=== PATIENT | female | born 1935 | race Caucasian/White ===

== ENCOUNTER 2017-02-22 21:12 | Emergency (ER) | payer SELFPAY ==
[~2017-02-22] VITALS: Ht 165.1 cm; Wt 63.5 kg
[~2017-02-22 21:12] MED LIST: BENAZEPRIL HCL10 MG ORAL
[2017-02-22] MEDS ORDERED: ASPIR 8181 MG ORAL (21:34)
[2017-02-22] MEDS ORDERED: CALCIUM500 M3 PO (21:34)
[2017-02-22] MEDS ORDERED: ATENOLOL25 MG ORAL (21:34)
[2017-02-22] MEDS ORDERED: ENALAPRIL MALE2.5 MG ORAL (21:34)
[2017-02-22 21:45] VITALS: BP 189/98
--- NOTE | 2017-02-22 21:50 | Emergency Room Report ---
History of Present Illness General Chief Complaint: Flu Like Symptoms Source: Patient Present Illness HPI Patient presents with complaints of cough Ongoing for the past one and a half weeks patient reports that she has a flight [place] to [place] her has recently Denies any chest pain denies any back or flank pain Denies any abdominal pain Denies any posterior neck pain however she has a mildly sore throat Allergies: Coded Allergies: No Known Allergies (Unverified , 08/23/13) Patient History Past Medical History: see triage record Pertinent Family History: none Last Menstrual Period: n/a Reviewed Nursing Documentation: PMH: Agreed, PSxH: Agreed Nursing Documentation-PM Past Medical History: No History, Except For Hx Hypertension: Yes 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; Review of Systems All Other Systems: negative except mentioned in HPI Physical Exam Vital Signs Date Time Temp Pulse Resp B/P (MAP) Pulse Ox O2 Delivery O2 Flow Rate FiO2 02/22/17 21:26 98.6 80 16 179/118 97 Room Air Sp02 EP Interpretation: reviewed, normal General Appearance: well appearing, no apparent distress Head: normocephalic, atraumatic Eyes: bilateral eye PERRL, bilateral eye EOMI ENT: hearing grossly normal, normal pharynx, TMs + canals normal, uvula midline Neck: full range of motion, supple, no meningismus, no bony tend Respiratory: lungs clear, normal breath sounds, no rhonchi, no respiratory distress, no retraction, no accessory muscle use Cardiovascular #1: normal peripheral pulses, regular rate, rhythm, no edema, no gallop, no JVD, no murmur Gastrointestinal: normal bowel sounds, non tender, soft, no mass, no organomegaly, non-distended, no guarding, no hernia, no pulsatile mass, no rebound Genitourinary: no CVA tenderness Musculoskeletal: normal inspection Neurologic: oriented x3, responsive, dinkey press operator III-XII nml as tested, motor strength/ tone normal, sensory intact Psychiatric: mood/affect normal Skin: normal color, no rash, warm/dry, palpation normal Lymphatic: normal inspection, no adenopathy Medical Decision Making Diagnostic Impression: Primary Impression: Community acquired pneumonia ER Course Given the patient's history and presentation imaging studies were obtained No obvious focal infiltrate however there is some haziness in the left lower lobe Patient's clinical exam is in line with community-acquired pneumonia She was provided with antibiotics here continues to saturate well on room air Does not meet criteria for inpatient care and will have outpatient trial Chest X-Ray Diagnostic Results Chest X-Ray Diagnostic Results : Chest X-Ray Ordered: Yes # of Views/Limited/Complete: 1 View Indication: Chest Pain EP Interpretation: Yes Interpretation: no consolidation, no effusion, no pneumothorax, other - Mild increased pulmonary markings, left lower lobe haziness Impression: No acute disease Electronically Signed by: Wojciech Souza DO Last Vital Signs Date Time Temp Pulse Resp B/P (MAP) Pulse Ox O2 Delivery O2 Flow Rate FiO2 02/22/17 21:26 98.6 80 16 179/118 97 Room Air Status: improved Disposition: HOME, SELF-CARE Condition: Improved Scripts Levofloxacin* (LEVAQUIN*) 750 Mg Tablet 750 MG ORAL DAILY for 7 Days, TAB Prov: WOJCIECH SOUZA D.O. 02/22/17 Additional Instructions: Patient is provided with the discharge instructions notified to follow up with primary doctor in the next 2-3 days otherwise return to the er with any worsening symptoms. Please note that this report is being documented using [employer] technology. This can lead to erroneous entry secondary to incorrect interpretation by the dictating instrument. WOJCIECH SOUZA D.O. Feb 22, 2017 21:50
[2017-02-22] MEDS ORDERED: LEVAQUIN750 MG ORAL (23:10)
[2017-02-22] MEDS ORDERED: Levofloxacin 500mg tab ORAL ONE ×2 (23:15)
[2017-02-22 23:35] VITALS: BP 167/112
--- NOTE | 2017-02-23 12:42 | Diagnostic Imaging Report ---
Indication: Dyspnea Comparison: 08/23/13 A single view chest radiograph was obtained. Findings: No definite infiltrate or pulmonary vascular congestion identified. The heart is enlarged. The aorta is mildly enlarged consistent with atherosclerotic vascular disease. The bones are osteopenic. Impression: No acute disease
== END 2017-02-22 23:35 | disposition home or self-care (01) ==
LOC: EMR 22:43
DX: J18.8 Other pneumonia, unspecified organism (principal); I10 Essential (primary) hypertension; H91.91 Unspecified hearing loss, right ear
CPT/HCPCS: 71010; 99283

== ENCOUNTER 2018-11-14 21:00 | Inpatient (IN) | payer MEDICARE, MEDICAID ==
[~2018-11-14] VITALS: Ht 165.1 cm; Wt 69.9 kg
[~2018-11-14 21:00] MED LIST changes: +ASPIR 8181 MG ORAL; +ATENOLOL25 MG ORAL; +CALCIUM500 M3 PO; +ENALAPRIL MALE2.5 MG ORAL; +LEVAQUIN750 MG ORAL
[2018-11-14] MEDS ORDERED: AMLODIPINE BESY10 MG ORAL (21:08)
[2018-11-14] MEDS ORDERED: PLAVIX75 MG ORAL (21:09)
[2018-11-14] MEDS ORDERED: BYSTOLIC10 MG ORAL (21:09)
[2018-11-14 21:15] VITALS: BP 166/80
[2018-11-14] MEDS ORDERED: Pantoprazole Inj IVP ONE (21:15)
--- NOTE | 2018-11-14 21:15 | NUR ---
ED Nurse Note: [facility] abdominal pain, N/V/D. Per patient she noticed dark blood in her stool and emesis. AAO x4, VSS at this time, skin is dry, warm to touch. Placed in the gown, connected to the monitor, will continue to monitor.
[2018-11-14 21:59] LABS: HEMATOCRIT 40.9 % (37.0-47.0); HEMOGLOBIN 13.6 G/DL (12.0-16.0); MEAN CORPUSCULAR VOLUME 94 FL (80-99); PLATELET COUNT 225 K/UL (150-450); RED BLOOD COUNT 4.35 M/UL (4.20-5.40); RED CELL DISTRIBUTION WIDTH 10.9 % (11.6-14.8); WHITE BLOOD COUNT 9.3 K/UL (4.8-10.8)
[2018-11-14 22:52] LABS: POTASSIUM 4.6 MMOL/L (3.5-5.1)
[2018-11-14 22:54] LABS: CARBON DIOXIDE 26 MMOL/L (21-32); CHLORIDE 101 MMOL/L (98-107)
[2018-11-14 22:55] LABS: ANION GAP 10 mmol/L (5-15); BLOOD UREA NITROGEN 18 mg/dL (7-18)
[2018-11-14 22:56] LABS: CREATININE 1.2 MG/DL (0.55-1.30)
[2018-11-14 22:57] LABS: BILIRUBIN,TOTAL 0.6 MG/DL (0.2-1.0)
[2018-11-14 22:58] LABS: ALANINE AMINOTRANSFERASE 16 U/L (12-78); ASPARTATE AMINO TRANSFERASE 20 U/L (15-37)
[2018-11-14 22:59] LABS: ALBUMIN 3.6 G/DL (3.4-5.0)
[2018-11-14 23:00] LABS: ALBUMIN/GLOBULIN RATIO 1.1 (1.0-2.7)
[2018-11-14] MEDS ORDERED: Isovue-300 100ml vial INJ PRN (23:00)
[2018-11-14 23:01] LABS: ALKALINE PHOSPHATASE 75 U/L (46-116)
[2018-11-14 23:03] LABS: SODIUM 137 MMOL/L (136-145)
--- NOTE | 2018-11-14 23:07 | Emergency Room Report ---
History of Present Illness General Chief Complaint: Vomiting Present Illness HPI Patient is an 83-year-old female brought in by EMS after increased vomiting and discoloration of her stools. Patient had reportedly been having coffee-ground emesis as well as dark stool. She had been recently undergoing physical therapy. She denies any fever. 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; Review of Systems All Other Systems: negative except mentioned in HPI Physical Exam Vital Signs Date Time Temp Pulse Resp B/P (MAP) Pulse Ox O2 Delivery O2 Flow Rate FiO2 11/14/18 20:59 97.9 78 16 166/80 (108) 98 Room Air Sp02 EP Interpretation: reviewed, normal General Appearance: normal inspection, well appearing, no apparent distress, alert, GCS 15, Chronically Ill Head: atraumatic ENT: normal ENT inspection, hearing grossly normal, normal voice Neck: normal inspection, full range of motion, supple, no bony tend Respiratory: normal inspection, lungs clear, normal breath sounds, no respiratory distress, no retraction, no wheezing Cardiovascular #1: regular rate, rhythm, no edema Gastrointestinal: normal inspection, normal bowel sounds, non tender, soft, no guarding, no hernia Genitourinary: no CVA tenderness Musculoskeletal: normal inspection, back normal, normal range of motion Neurologic: normal inspection, alert, oriented x3, responsive, traffic control technician III-XII nml as tested, motor strength/tone normal, speech normal Psychiatric: normal inspection, judgement/insight normal, mood/affect normal Medical Decision Making Diagnostic Impression: Primary Impression: Coffee ground emesis Additional Impression: GI bleed ER Course Patient presented for hematemesis. Differential diagnosis include was not limited to abscess, anemia, foreign body, myocardial infarction among others. Because of complexity of patient's case laboratory testing and imaging studies were ordered. EKG interpreted by me showed normal sinus rhythm with a rate of [address] or T wave changes. Patient was given IV Zofran as well as IV Protonix.Have some improvement in her symptoms after medications. Patient will be admitted to the hospital. Patient's advanced age as well as bleeding on anticoagulant medications.Patient will be admitted to Dr. Nam Che for inpatient management due to panel physician. Labs Test 11/14/18 21:20 White Blood Count 9.3 K/UL (4.8-10.8) Red Blood Count 4.35 M/UL (4.20-5.40) Hemoglobin 13.6 G/DL (12.0-16.0) Hematocrit 40.9 % (37.0-47.0) Mean Corpuscular Volume 94 FL (80-99) Mean Corpuscular Hemoglobin 31.2 PG (27.0-31.0) Mean Corpuscular Hemoglobin Concent 33.2 G/DL (32.0-36.0) Red Cell Distribution Width 10.9 % (11.6-14.8) Platelet Count 225 K/UL (150-450) Mean Platelet Volume 6.5 FL (6.5-10.1) Neutrophils (%) (Auto) % (45.0-75.0) Lymphocytes (%) (Auto) % (20.0-45.0) Monocytes (%) (Auto) % (1.0-10.0) Eosinophils (%) (Auto) % (0.0-3.0) Basophils (%) (Auto) % (0.0-2.0) Differential Total Cells Counted 100 Neutrophils % (Manual) 86 % (45-75) Lymphocytes % (Manual) 9 % (20-45) Monocytes % (Manual) 4 % (1-10) Eosinophils % (Manual) 0 % (0-3) Basophils % (Manual) 1 % (0-2) Band Neutrophils 0 % (0-8) Platelet Estimate Adequate Platelet Morphology Normal Red Blood Cell Morphology Normal Prothrombin Time 10.5 SEC (9.30-11.50) Prothromb Time International Ratio 1.0 (0.9-1.1) Activated Partial Thromboplast Time 23 SEC (23-33) Sodium Level 137 MMOL/L (136-145) Potassium Level 4.6 MMOL/L (3.5-5.1) Chloride Level 101 MMOL/L (98-107) Carbon Dioxide Level 26 MMOL/L (21-32) Anion Gap 10 mmol/L (5-15) Blood Urea Nitrogen 18 mg/dL (7-18) Creatinine 1.2 MG/DL (0.55-1.30) Estimat Glomerular Filtration Rate mL/min (>60) Glucose Level 196 MG/DL (74-106) Calcium Level 9.0 MG/DL (8.5-10.1) Total Bilirubin 0.6 MG/DL (0.2-1.0) Aspartate Amino Transf (AST/SGOT) 20 U/L (15-37) Alanine Aminotransferase (ALT/SGPT) 16 U/L (12-78) Alkaline Phosphatase 75 U/L (46-116) Troponin I 0.018 ng/mL (0.000-0.056) Total Protein 6.9 G/DL (6.4-8.2) Albumin 3.6 G/DL (3.4-5.0) Globulin 3.3 g/dL Albumin/Globulin Ratio 1.1 (1.0-2.7) Lipase 125 U/L (73-393) Thyroid Stimulating Hormone (TSH) 0.917 uiU/mL (0.358-3.740) Last Vital Signs Date Time Temp Pulse Resp B/P (MAP) Pulse Ox O2 Delivery O2 Flow Rate FiO2 11/14/18 21:15 97.9 16 166/80 98 Room Air 11/14/18 21:15 78 Status: improved Disposition: HOME, SELF-CARE Condition: Stable Referrals: NOT CHOSEN IPA/,REFERRING (PCP) Fabio Gray MD Nov 14, 2018 23:07
[2018-11-14 23:15] VITALS: BP 166/80
[2018-11-15] MEDS: D5 1/2NS 1,000 ML IV SCH ×2 (00:11→13:44)
[2018-11-15 01:14] VITALS: BP 136/72
--- NOTE | 2018-11-15 02:00 | NUR ---
NURSE NOTES: Received report from catracho Soto via phone. Awaiting pt arrival to floor.
[2018-11-15 04:00] VITALS: BP 138/74
--- NOTE | 2018-11-15 04:42 | NUR ---
ED Nurse Note: Patient was admited to TELE due to GI bleeding. AAO x4, VSS at this time, skin is dry, warm to touch. Patient was transfered to the unit via gurney, by ACLS protocol, with all belongings.
--- NOTE | 2018-11-15 07:49 | NUR ---
HAND-OFF: Report given to MOISE Lauren. Pt stable..
--- NOTE | 2018-11-15 07:50 | NUR ---
NURSE NOTES: Received report from MOISE Mcelroy. patient is resting in bed in stable condition. AO X 4 with no signs and symptoms of acute distress at this time. Breathing unlabored in room air. IV line intact and running at RX dose. Safety precaution in place; side rails up x2. Call Light and bed side table within reach, bed in lowest position, brakes and alarm on at all times. Will continue plan of care.
[2018-11-15 08:00] VITALS: BP 130/70
[2018-11-15] MEDS: Atenolol 25mg tab ORAL SCH (08:43)
[2018-11-15] MEDS: Aspirin EC 81mg tab ORAL SCH (08:43)
--- NOTE | 2018-11-15 08:51 | Diagnostic Imaging Report ---
Clinical Indication: Abdominal pain for 2 days Technique: No oral contrast utilized, per emergency room physician request IV administration nonionic contrast. Venous phase spiral acquisition obtained through the abdomen and pelvis. Multiplanar reconstructions were generated. Total dose length product 813.35 mGycm. CTDIvol(s) 17.93 mGy. Dose reduction achieved using automated exposure control Comparison: 08/23/2013 Findings: The appendix is normal. There is no evidence of diverticulosis or diverticulitis. No small bowel distention. No free or loculated intraperitoneal gas or fluid is evident. The distal esophagus, stomach, duodenum are unremarkable. The liver demonstrates multiple capsular calcifications. No focal parenchymal abnormality. The gallbladder, bile ducts, pancreas, spleen, adrenals are unremarkable. No retroperitoneal or mesenteric mass or adenopathy demonstrated. As previously, the uterus demonstrates multiple small fibroids, some calcified. No pelvic mass or adenopathy otherwise. The included lung bases demonstrate scarring and atelectasis on the left. The bones demonstrate thoracolumbar scoliotic deformity and secondary degenerative changes. There is mild fullness to the left renal collecting system which is similar in extent to the previous exam. Multiple parapelvic cysts are seen bilaterally, also demonstrated previously.. Subcentimeter low-attenuation renal lesions are demonstrated bilaterally, too small to characterize. A parenchymal defect is seen in the lower pole of the right kidney, where there was previously a large cyst which has apparently since involuted. Impression: No acute abnormality Bilateral renal parapelvic cysts. Subcentimeter low-attenuation renal lesions are too small to characterize, most likely benign simple cysts. Interim involution of a large right lower pole cyst Uterine fibroids, some calcified, also previously demonstrated Other findings as noted, including thoracal lumbar scoliotic deformity, secondary degenerative changes, pulmonary basilar scarring or atelectasis, hepatic capsular calcifications This agrees with the preliminary interpretation provided overnight by [employer] teleradiology service. The CT scanner at [facility] is accredited by the [employer] [employer] and the scans are performed using protocols designed to limit radiation exposure to as low as reasonably achievable to attain images of sufficient resolution adequate for diagnostic evaluation.
[2018-11-15 09:40] LABS: BASOPHILS % (AUTO) 0.7 % (0.0-2.0); EOSINOPHILS % (AUTO) 0.7 % (0.0-3.0); HEMATOCRIT 41.5 % (37.0-47.0); HEMOGLOBIN 13.3 G/DL (12.0-16.0); LYMPHOCYTES % (AUTO) 25.1 % (20.0-45.0); MEAN CORPUSCULAR VOLUME 97 FL (80-99); MONOCYTES % (AUTO) 7.6 % (1.0-10.0); NEUTROPHILS % (AUTO) 65.9 % (45.0-75.0); PLATELET COUNT 236 K/UL (150-450); RED BLOOD COUNT 4.27 M/UL (4.20-5.40); RED CELL DISTRIBUTION WIDTH 11.4 % (11.6-14.8); WHITE BLOOD COUNT 7.2 K/UL (4.8-10.8)
[2018-11-15 09:43] LABS: ANION GAP 5 mmol/L (5-15); BLOOD UREA NITROGEN 15 mg/dL (7-18); CALCIUM 8.9 MG/DL (8.5-10.1); CARBON DIOXIDE 31 MMOL/L (21-32); CHLORIDE 106 MMOL/L (98-107); CREATININE 1.1 MG/DL (0.55-1.30); POTASSIUM 4.2 MMOL/L (3.5-5.1); SODIUM 142 MMOL/L (136-145)
--- NOTE | 2018-11-15 10:00 | History and Physical Report ---
DATE OF ADMISSION: 11/14/2018 REASON FOR ADMISSION: 1. Bright red blood through rectum. 2. GI bleed. HISTORY OF PRESENT ILLNESS: The patient is an 83-year-old female brought in by EMS after complaining of passing bright red blood through rectum starting yesterday around 3 p.m. The patient had been doing well with physical therapy as an outpatient, presented home and started noticing dark tarry stools, which turned bright red. She also had episodes of emesis, which she felt was dark tinged in nature. Denies any current chest pain, nausea, vomiting, or diarrhea. No pain with defecation. PAST MEDICAL HISTORY: 1. Hypertension. 2. Coronary artery disease. PAST SURGICAL HISTORY: Noncontributory. ALLERGIES: No known drug allergies. FAMILY HISTORY: Positive for hypertension. SOCIAL HISTORY: No tobacco, alcohol, or illicit drug use. REVIEW OF SYSTEMS: NEUROLOGIC: The patient denies headache, change in vision, syncope, or presyncopal episodes. CARDIOVASCULAR: No current chest pain, palpitations, or angina. PULMONARY: No difficulty breathing, productive cough, or sputum. GASTROINTESTINAL/GENITOURINARY: The patient was having bright red blood through rectum and episodes of emesis, blood tinged. MUSCULOSKELETAL: The patient is feeling weak, tired, and fatigued. PHYSICAL EXAMINATION: VITAL SIGNS: Blood pressure 130/70, respiratory rate 20, pulse 57, and temperature 98. 97% oxygen saturation on room air. GENERAL: The patient is awake and alert, not in distress. HEENT: Extraocular muscles intact. No lymphadenopathy noted. CARDIOVASCULAR: S1, S2. No rubs or gallops. PULMONARY: Clear to auscultation bilaterally. No rales, rhonchi or wheezes. ABDOMEN: Nondistended and nontender. EXTREMITIES: No edema. LABORATORY DATA: Labs dated 11/14/2018, sodium 137, potassium 4.6, creatinine 1.2. Hemoglobin 13.6, white cell count 9.3, and platelet count 225. ASSESSMENT AND PLAN: 1. Gastrointestinal bleed with bright red blood through the rectum, could be secondary to hemorrhoids. Hemoglobin is currently stable. We will recheck level and consult Gastroenterology for possible EGD and colonoscopy. 2. Hypertension. We will continue antihypertensive medications. Blood pressure is currently stable. Continue IV fluids. 3. Volume depletion. Continue IV fluids. 4. Coronary artery disease. The patient has been on Plavix, at this time being temporarily held until cleared by GI. 5. DVT prophylaxis with SCDs. Macjimenez Landaverde MD DR: POONAM JOB#: [id number] CC:
--- NOTE | 2018-11-15 10:01 | GI Initial Consult Note ---
History of Present Illness General Date patient seen: Nov 15, 2018 Time patient seen: 09:54 Reason for Hospitalization: Vomiting Referring physician: VALDEMAR YUN Reason for Consultation: COFFEE GROUNDS Present Illness HPI Patient is an 83-year-old female brought in by EMS after increased vomiting and discoloration of her stools. Patient had reportedly been having coffee-ground emesis as well as dark stool. She had been recently undergoing physical therapy. She denies any fever. She is currently on anticoagulation with Plavix. GI consulted for coffee grounds. Pt seen, awake A&OX4 NAD with no active s/sx of N/V/D . Patient reported episode of coffee ground emesis and diarrhea yesterday. Presents today, states she feels okay. Took Plavix this morning. States she had colonoscopy approximately 5 years ago with unremarkable findings. Had history of colonic polyps 15 years ago. Labs reviewed; no anemia , no leukocytosis, no transaminitis. Home Meds Active Scripts Levofloxacin* (LEVAQUIN*) 750 Mg Tablet, 750 MG ORAL DAILY for 7 Days, TAB Prov:Wojciech Carranza DO 02/22/17 Reported Medications Clopidogrel Bisulfate* (PLAVIX*) 75 Mg Tablet, 75 MG ORAL DAILY, TAB 11/14/18 Nebivolol Hcl (BYSTOLIC*) 10 Mg Tablet, 5 MG ORAL DAILY, TAB 11/14/18 Amlodipine Besylate* (AMLODIPINE BESYLATE*) 10 Mg Tablet, 10 MG ORAL BID, TAB 11/14/18 Enalapril Maleate* (ENALAPRIL MALEATE*) 2.5 Mg Tablet, 2.5 MG ORAL EVERY 12 HOURS, TAB 02/22/17 Aspirin* (ASPIR 81*) 81 Mg Tablet.dr, 75 MG ORAL DAILY, TAB 02/22/17 Atenolol* (TENORMIN*) 25 Mg Tablet, 25 MG ORAL DAILY, TAB 02/22/17 Calcium Carbonate (CALCIUM) 500 Mg Tab.chew, 500 MG PO, TAB 02/22/17 Benazepril Hcl* (BENAZEPRIL HCL*) 10 Mg Tablet, 10 MG ORAL DAILY, TAB 08/23/13 Med list reviewed/reconciled: Yes Allergies: Coded Allergies: No Known Allergies (Unverified , 08/23/13) Patient History History Provided By: Patient, Medical Record PMH Narrative Past Medical History: see triage record Reviewed Nursing Documentation: PMH: Agreed; PSxH: Agreed Nursing Documentation-PMH Hx Hypertension: Yes 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; Social History: Denies: smoking, alcohol use, drug use, other Review of Systems All Other Systems: negative except mentioned in HPI Physical Exam Vital Signs Date Time Temp Pulse Resp B/P (MAP) Pulse Ox O2 Delivery O2 Flow Rate FiO2 11/14/18 20:59 97.9 78 16 166/80 (108) 98 Room Air Sp02 EP Interpretation: reviewed, normal Labs Laboratory Tests Test 11/14/18 21:20 11/15/18 09:25 White Blood Count 9.3 K/UL (4.8-10.8) 7.2 K/UL (4.8-10.8) Red Blood Count 4.35 M/UL (4.20-5.40) 4.27 M/UL (4.20-5.40) Hemoglobin 13.6 G/DL (12.0-16.0) 13.3 G/DL (12.0-16.0) Hematocrit 40.9 % (37.0-47.0) 41.5 % (37.0-47.0) Mean Corpuscular Volume 94 FL (80-99) 97 FL (80-99) Mean Corpuscular Hemoglobin 31.2 PG (27.0-31.0) H 31.1 PG (27.0-31.0) H Mean Corpuscular Hemoglobin Concent 33.2 G/DL (32.0-36.0) 31.9 G/DL (32.0-36.0) L Red Cell Distribution Width 10.9 % (11.6-14.8) L 11.4 % (11.6-14.8) L Platelet Count 225 K/UL (150-450) 236 K/UL (150-450) Mean Platelet Volume 6.5 FL (6.5-10.1) 6.3 FL (6.5-10.1) L Neutrophils (%) (Auto) % (45.0-75.0) 65.9 % (45.0-75.0) Lymphocytes (%) (Auto) % (20.0-45.0) 25.1 % (20.0-45.0) Monocytes (%) (Auto) % (1.0-10.0) 7.6 % (1.0-10.0) Eosinophils (%) (Auto) % (0.0-3.0) 0.7 % (0.0-3.0) Basophils (%) (Auto) % (0.0-2.0) 0.7 % (0.0-2.0) Differential Total Cells Counted 100 Neutrophils % (Manual) 86 % (45-75) H Lymphocytes % (Manual) 9 % (20-45) L Monocytes % (Manual) 4 % (1-10) Eosinophils % (Manual) 0 % (0-3) Basophils % (Manual) 1 % (0-2) Band Neutrophils 0 % (0-8) Platelet Estimate Adequate Platelet Morphology Normal Red Blood Cell Morphology Normal Prothrombin Time 10.5 SEC (9.30-11.50) Prothromb Time International Ratio 1.0 (0.9-1.1) Activated Partial Thromboplast Time 23 SEC (23-33) Sodium Level 137 MMOL/L (136-145) 142 MMOL/L (136-145) Potassium Level 4.6 MMOL/L (3.5-5.1) 4.2 MMOL/L (3.5-5.1) Chloride Level 101 MMOL/L (98-107) 106 MMOL/L (98-107) Carbon Dioxide Level 26 MMOL/L (21-32) 31 MMOL/L (21-32) Anion Gap 10 mmol/L (5-15) 5 mmol/L (5-15) Blood Urea Nitrogen 18 mg/dL (7-18) 15 mg/dL (7-18) Creatinine 1.2 MG/DL (0.55-1.30) 1.1 MG/DL (0.55-1.30) Estimat Glomerular Filtration Rate mL/min (>60) mL/min (>60) Glucose Level 196 MG/DL (74-106) H 104 MG/DL (74-106) Calcium Level 9.0 MG/DL (8.5-10.1) 8.9 MG/DL (8.5-10.1) Total Bilirubin 0.6 MG/DL (0.2-1.0) Aspartate Amino Transf (AST/SGOT) 20 U/L (15-37) Alanine Aminotransferase (ALT/SGPT) 16 U/L (12-78) Alkaline Phosphatase 75 U/L (46-116) Troponin I 0.018 ng/mL (0.000-0.056) Total Protein 6.9 G/DL (6.4-8.2) Albumin 3.6 G/DL (3.4-5.0) Globulin 3.3 g/dL Albumin/Globulin Ratio 1.1 (1.0-2.7) Lipase 125 U/L (73-393) Thyroid Stimulating Hormone (TSH) 0.917 uiU/mL (0.358-3.740) General Appearance: well appearing, no apparent distress, alert Head: normocephalic EENT: PERRL/EOMI, normal ENT inspection Neck: supple Respiratory: normal breath sounds, no respiratory distress Cardiovascular: normal rate Gastrointestinal: normal inspection, non tender, soft, normal bowel sounds, non -distended Rectal: deferred Genitourinary: no CVA tenderness Musculoskeletal: normal inspection, back normal Neurologic: normal inspection, alert, oriented x3, responsive Psychiatric: normal inspection, judgement/insight normal, memory normal Skin: normal inspection, normal color, no rash, warm/dry, palpation normal, well hydrated Lymphatic: normal inspection, no adenopathy Current Medications Current Medications Medications (Trade) Dose Ordered Sig/Jose Route PRN Reason Start Time Stop Time Status Last Admin Dose Admin Acetaminophen (Tylenol) 650 mg Q4H PRN ORAL Mild Pain (Pain Scale 1-3) 11/14/18 23:15 12/14/18 23:14 Amlodipine Besylate (Norvasc) 10 mg DAILY ORAL 11/15/18 09:00 12/15/18 08:59 11/15/18 08:43 Aspirin (Ecotrin) 81 mg DAILY ORAL 11/15/18 09:00 12/15/18 08:59 11/15/18 08:43 Atenolol (Tenormin) 25 mg DAILY ORAL 11/15/18 09:00 12/15/18 08:59 11/15/18 08:43 Dextrose (Dextrose 50%) 25 ml Q30M PRN IV Hypoglycemia 11/14/18 23:15 12/14/18 23:14 Dextrose (Dextrose 50%) 50 ml Q30M PRN IV Hypoglycemia 11/14/18 23:15 12/14/18 23:14 Dextrose/Sodium Chloride 1,000 ml @ 75 mls/hr [id number] IV 11/15/18 00:11 12/15/18 00:10 11/15/18 00:11 Iopamidol (Isovue-300 100ml) 100 ml NOW PRN INJ Radiology Procedure 11/14/18 23:00 Ondansetron HCl (Zofran) 4 mg Q6H PRN IVP Nausea & Vomiting 11/14/18 23:15 12/14/18 23:14 Pantoprazole (Protonix) 40 mg DAILY ORAL 11/15/18 09:00 12/15/18 08:59 11/15/18 08:42 GI: Plan Problems: (1) Gastric ulcer (2) Coffee ground emesis (3) Diarrhea (4) GI bleed (5) Abdominal pain Plan Plavix must be discontinued for minimum of 48 hours prior any GI procedures, last taken this morning. plan for EGD advance to soft cardiac diet monitor H&H, prn transfusions ppi daily IV/PO hydration follow labs Discussed with Dr. Sheridan. Thank you for this patient referral, we will follow. The patient was seen and examined at bedside and all new and available data was reviewed in the patients chart. I agree with the above findings, impression and plan. (Patient seen earlier today. Signature stamp does not reflect patient encounter time.). - MD Vania Agrawal,[facility] [employer] ENGINE REPAIRER Nov 15, 2018 10:01
--- NOTE | 2018-11-15 11:03 | Consultation ---
Consult Note Consult Note Pulmonary Consultation HISTORY OF PRESENT ILLNESS: The patient is an 83-year-old female brought in by EMS after complaining of passing bright red blood through rectum starting yesterday around 3 p.m. The patient had been doing well with physical therapy as an outpatient, presented home and started noticing dark tarry stools, which turned bright red. She also had episodes of emesis, which she felt was dark tinged in nature. Denies any current chest pain, nausea, vomiting, or diarrhea. No pain with defecation. Additionally, patient also reported chest discomfort this morning. She denies any shortness of breath. PAST MEDICAL HISTORY: 1. Hypertension. 2. Coronary artery disease. PAST SURGICAL HISTORY: Noncontributory. ALLERGIES: No known drug allergies. FAMILY HISTORY: Positive for hypertension. SOCIAL HISTORY: No tobacco, alcohol, or illicit drug use. REVIEW OF SYSTEMS: NEUROLOGIC: The patient denies headache, change in vision, syncope, or presyncopal episodes. CARDIOVASCULAR: No current chest pain, palpitations, or angina. PULMONARY: No difficulty breathing, productive cough, or sputum. GASTROINTESTINAL/GENITOURINARY: The patient was having bright red blood through rectum and episodes of emesis, blood tinged. MUSCULOSKELETAL: The patient is feeling weak, tired, and fatigued. PHYSICAL EXAMINATION: VITAL SIGNS: Blood pressure 130/70, respiratory rate 20, pulse 57, and temperature 98. 97% oxygen saturation on room air. GENERAL: The patient is awake and alert, not in distress. HEENT: Extraocular muscles intact. No lymphadenopathy noted. CARDIOVASCULAR: S1, S2. No rubs or gallops. PULMONARY: Clear to auscultation bilaterally. No rales, rhonchi or wheezes. ABDOMEN: Nondistended and nontender. EXTREMITIES: No edema. LABORATORY DATA: Labs dated 11/14/2018, sodium 137, potassium 4.6, creatinine 1.2. Hemoglobin 13.6, white cell count 9.3, and platelet count 225. ASSESSMENT AND PLAN: 1. Gastrointestinal bleed with bright red blood through the rectum, could be secondary to hemorrhoids. Hemoglobin is currently stable. agreed to recheck level and consult Gastroenterology for possible EGD and colonoscopy. 2. Hypertension. I will continue antihypertensive medications. Blood pressure is currently stable. Continue IV fluids. 3. Volume depletion. Continue IV fluids. 4. Coronary artery disease. The patient has been on Plavix, at this time being temporarily held until cleared by GI. 5. DVT prophylaxis with SCDs. 6. chest pain. Appears nonpulmonary and noncardiac in origin. Agree with GI evaluation and possible endoscopy MD Chinedu Bay Omar Syed MD Nov 15, 2018 11:03
[2018-11-15 12:00] VITALS: BP 100/54
--- NOTE | 2018-11-15 13:09 | Cardiology Report ---
APPROVED REPORT EKG Measurement Heart [id number] OR [id number] Sinus rhythm with premature atrial complexes Left axis deviation Left ventricular hypertrophy with repolarization abnormality Possible Lateral infarct, age undetermined Abnormal ECG
--- NOTE | 2018-11-15 15:07 | NUR ---
CASE MANAGEMENT:REVIEW 83 YR OLD FEMALE BIBA FROM HOME CC: COFFEE GROUND EMESIS AND BLOODY STOOL SI: GIB 97.8 78 16 166/80 98% ON RA GLUCOSE+196 IS: IV ZOFRAN IV PROTONIX TYPE AND CROSS : TELEMETRY STATUS DCP; FROM HOME
[2018-11-15 16:00] VITALS: BP 105/66
--- NOTE | 2018-11-15 19:25 | NUR ---
HAND-OFF: Report given to Joseph. PHIPPS.
--- NOTE | 2018-11-15 19:26 | NUR ---
NURSE NOTES: Received pt from catracho Smith. Pt is awake and resting in bed. Iv site intact. Bed locked in lowest position and call light within reach. Will continue with plan of care.
[2018-11-15 20:00] VITALS: BP 105/60
[2018-11-16] VITALS: BP 111/59
[2018-11-16 04:00] VITALS: BP 143/86
[2018-11-16] MEDS: D5 1/2NS 1,000 ML IV SCH ×2 (06:00→16:11)
--- NOTE | 2018-11-16 07:20 | NUR ---
NURSE NOTES: Report received from MOISE Shukla. Patient asleep comfortably. No breathing distress noted. IV running, site intact. Bed on lowest position, side rails upx2, brakes engaged. Call light within easy reach.
--- NOTE | 2018-11-16 07:27 | NUR ---
HAND-OFF: Report given to MOISE Martino. Endorsed plan of care.
[2018-11-16 08:00] VITALS: BP 143/77
--- NOTE | 2018-11-16 08:01 | Nephrology Progress Note ---
Assessment/Plan Assessment/Plan: A/P 1) GI Bleed- EGD/ +- Colonoscopy planned for then DC afterwards 2) HTN- stable 3) DVT prophylaxis- SCDs DC once cleared by GI Subjective Date patient seen: Nov 16, 2018 Time patient seen: 08:00 Allergies: Coded Allergies: No Known Allergies (Unverified , 08/23/13) All Systems: reviewed and negative except above Subjective Patient in no distress. Awaiting GI procedure Objective Last 24 Hour Vital Signs Date Time Temp Pulse Resp B/P (MAP) Pulse Ox O2 Delivery O2 Flow Rate FiO2 11/16/18 04:00 48 11/16/18 04:00 98.1 48 18 143/86 (105) 97 11/16/18 00:00 53 11/16/18 00:00 98.0 53 18 111/59 (76) 95 11/15/18 21:00 Room Air 11/15/18 20:00 54 11/15/18 20:00 97.9 54 18 105/60 (75) 95 11/15/18 16:00 56 11/15/18 16:00 97.8 58 20 105/66 (79) 95 11/15/18 12:00 97.9 62 20 100/54 (69) 95 11/15/18 12:00 55 11/15/18 09:00 Room Air 11/15/18 08:43 67 130/70 11/15/18 08:43 67 130/70 11/15/18 08:00 62 11/15/18 08:00 98.0 57 20 130/70 (90) 97 Intake and Output 11/15/18 11/16/18 19:00 07:00 Intake Total 320 ml Balance 320 ml Intake Oral 320 ml # Voids 3 3 Laboratory Tests 11/15/18 09:25: White Blood Count 7.2, Red Blood Count 4.27, Hemoglobin 13.3, Hematocrit 41.5, Mean Corpuscular Volume 97, Mean Corpuscular Hemoglobin 31.1H, Mean Corpuscular Hemoglobin Concent 31.9L, Red Cell Distribution Width 11.4L, Platelet Count 236 , Mean Platelet Volume 6.3L, Neutrophils (%) (Auto) 65.9, Lymphocytes (%) (Auto ) 25.1, Monocytes (%) (Auto) 7.6, Eosinophils (%) (Auto) 0.7, Basophils (%) ( Auto) 0.7, Sodium Level 142, Potassium Level 4.2, Chloride Level 106, Carbon Dioxide Level 31, Anion Gap 5, Blood Urea Nitrogen 15, Creatinine 1.1, Estimat Glomerular Filtration Rate , Glucose Level 104, Calcium Level 8.9 Height (Feet): 5 Height (Inches): 5.00 Weight (Pounds): 154 General Appearance: no apparent distress Neck: normal alignment Cardiovascular: regular rhythm Respiratory/Chest: lungs clear, normal breath sounds Abdomen: non tender, soft Edema: no edema noted Arm (L), no edema noted Arm (R), no edema noted Leg (L), no edema noted Leg (R), no edema noted Pedal (L), no edema noted Pedal (R), no edema noted Generalized Mac Landaverde MD Nov 16, 2018 08:01
--- NOTE | 2018-11-16 08:20 | NUR ---
NURSE NOTES: Helped Pt. to the restroom. AOx4. No pain or SOB.
[2018-11-16 08:49] LABS: BASOPHILS % (AUTO) 0.9 % (0.0-2.0); EOSINOPHILS % (AUTO) 4.2 % (0.0-3.0); HEMATOCRIT 41.1 % (37.0-47.0); HEMOGLOBIN 13.3 G/DL (12.0-16.0); LYMPHOCYTES % (AUTO) 38.9 % (20.0-45.0); MEAN CORPUSCULAR VOLUME 97 FL (80-99); MONOCYTES % (AUTO) 7.5 % (1.0-10.0); NEUTROPHILS % (AUTO) 48.5 % (45.0-75.0); PLATELET COUNT 212 K/UL (150-450); RED BLOOD COUNT 4.22 M/UL (4.20-5.40); RED CELL DISTRIBUTION WIDTH 11.8 % (11.6-14.8); WHITE BLOOD COUNT 5.7 K/UL (4.8-10.8)
[2018-11-16] MEDS: Atenolol 25mg tab ORAL SCH (09:00)
[2018-11-16] MEDS: Aspirin EC 81mg tab ORAL SCH (09:00)
[2018-11-16 09:21] LABS: ANION GAP 7 mmol/L (5-15); BLOOD UREA NITROGEN 20 mg/dL (7-18); CALCIUM 8.5 MG/DL (8.5-10.1); CARBON DIOXIDE 27 MMOL/L (21-32); CHLORIDE 108 MMOL/L (98-107); CREATININE 1.1 MG/DL (0.55-1.30); POTASSIUM 3.8 MMOL/L (3.5-5.1); SODIUM 142 MMOL/L (136-145)
--- NOTE | 2018-11-16 09:32 | Pulmonology Progress Note ---
Assessment/Plan Assessment/Plan ASSESSMENT AND PLAN: 1. Gastrointestinal bleed with bright red blood through the rectum, could be secondary to hemorrhoids. Hemoglobin is currently stable. 2. Hypertension. 3. Volume depletion. 4. Coronary artery disease. 5. DVT prophylaxis with SCDs. 6. Chest pain. Appears nonpulmonary and noncardiac in origin. Subjective Interval Events: No new respiratory eventys Constitutional: Reports: no symptoms HEENT: Repors: no symptoms Respiratory: Reports: no symptoms Cardiovascular: Reports: no symptoms Gastrointestinal/Abdominal: Reports: no symptoms Genitourinary: Reports: no symptoms Allergies: Coded Allergies: No Known Allergies (Unverified , 08/23/13) Objective Last 24 Hour Vital Signs Date Time Temp Pulse Resp B/P (MAP) Pulse Ox O2 Delivery O2 Flow Rate FiO2 11/16/18 09:18 58 143/77 11/16/18 09:00 58 143/77 11/16/18 08:00 98.5 58 18 143/77 (99) 96 11/16/18 04:00 48 11/16/18 04:00 98.1 48 18 143/86 (105) 97 11/16/18 00:00 53 11/16/18 00:00 98.0 53 18 111/59 (76) 95 11/15/18 21:00 Room Air 11/15/18 20:00 54 11/15/18 20:00 97.9 54 18 105/60 (75) 95 11/15/18 16:00 56 11/15/18 16:00 97.8 58 20 105/66 (79) 95 11/15/18 12:00 97.9 62 20 100/54 (69) 95 11/15/18 12:00 55 Intake and Output 11/15/18 11/16/18 19:00 07:00 Intake Total 320 ml Balance 320 ml Intake Oral 320 ml # Voids 3 3 General Appearance: no acute distress HEENT: normocephalic Respiratory/Chest: chest wall non-tender, lungs clear Cardiovascular: normal peripheral pulses, normal rate Laboratory Tests 11/16/18 06:25: White Blood Count 5.7, Red Blood Count 4.22, Hemoglobin 13.3, Hematocrit 41.1, Mean Corpuscular Volume 97, Mean Corpuscular Hemoglobin 31.4H, Mean Corpuscular Hemoglobin Concent 32.2, Red Cell Distribution Width 11.8, Platelet Count 212, Mean Platelet Volume 6.2L, Neutrophils (%) (Auto) 48.5, Lymphocytes (%) (Auto) 38.9, Monocytes (%) (Auto) 7.5, Eosinophils (%) (Auto) 4.2H, Basophils (%) (Auto ) 0.9, Sodium Level 142, Potassium Level 3.8, Chloride Level 108H, Carbon Dioxide Level 27, Anion Gap 7, Blood Urea Nitrogen 20H, Creatinine 1.1, Estimat Glomerular Filtration Rate , Glucose Level 86, Calcium Level 8.5 Current Medications Medications (Trade) Dose Ordered Sig/Jose Route PRN Reason Start Time Stop Time Status Last Admin Dose Admin Acetaminophen (Tylenol) 650 mg Q4H PRN ORAL Mild Pain (Pain Scale 1-3) 11/14/18 23:15 12/14/18 23:14 Amlodipine Besylate (Norvasc) 10 mg DAILY ORAL 11/15/18 09:00 12/15/18 08:59 11/16/18 09:18 Aspirin (Ecotrin) 81 mg DAILY ORAL 11/15/18 09:00 12/15/18 08:59 11/15/18 08:43 Atenolol (Tenormin) 25 mg DAILY ORAL 11/15/18 09:00 12/15/18 08:59 11/15/18 08:43 Dextrose (Dextrose 50%) 25 ml Q30M PRN IV Hypoglycemia 11/14/18 23:15 12/14/18 23:14 Dextrose (Dextrose 50%) 50 ml Q30M PRN IV Hypoglycemia 11/14/18 23:15 12/14/18 23:14 Dextrose/Sodium Chloride 1,000 ml @ 75 mls/hr [id number] IV 11/15/18 00:11 12/15/18 00:10 11/16/18 06:00 Iopamidol (Isovue-300 100ml) 100 ml NOW PRN INJ Radiology Procedure 11/14/18 23:00 Ondansetron HCl (Zofran) 4 mg Q6H PRN IVP Nausea & Vomiting 11/14/18 23:15 12/14/18 23:14 Pantoprazole (Protonix) 40 mg DAILY ORAL 11/15/18 09:00 12/15/18 08:59 11/16/18 09:18 Nam Che MD Nov 16, 2018 09:32
--- NOTE | 2018-11-16 10:32 | GI Progress Note ---
Assessment/Plan Problems: (1) Coffee ground emesis ICD Codes: K92.0 - Hematemesis SNOMED: 13574908 (2) GI bleed ICD Codes: K92.2 - Gastrointestinal hemorrhage, unspecified SNOMED: 70555278 (3) Abdominal pain (4) Diarrhea ICD Codes: R19.7 - Diarrhea, unspecified SNOMED: 82370905 (5) Gastric ulcer ICD Codes: K25.9 - Gastric ulcer, unspecified as acute or chronic, without hemorrhage or perforation SNOMED: 154666670 Status: stable Status Narrative Discussed with Dr. Sheridan. Assessment/Plan Plavix must be discontinued for minimum of 48 hours prior any GI procedures. plan for EGD/colonoscopy tomorrow CLD, NPO @ [facility] monitor H&H, prn transfusions ppi daily IV/PO hydration follow labs PT eval will follow with additional recommendations post procedure The patient was seen and examined at bedside and all new and available data was reviewed in the patients chart. I agree with the above findings, impression and plan. (Patient seen earlier today. Signature stamp does not reflect patient encounter time.). - Kevin Sheridan MD Subjective Subjective abdominal pain Objective Last 24 Hour Vital Signs Date Time Temp Pulse Resp B/P (MAP) Pulse Ox O2 Delivery O2 Flow Rate FiO2 11/16/18 09:18 58 143/77 11/16/18 09:00 58 143/77 11/16/18 08:00 98.5 58 18 143/77 (99) 96 11/16/18 04:00 48 11/16/18 04:00 98.1 48 18 143/86 (105) 97 11/16/18 00:00 53 11/16/18 00:00 98.0 53 18 111/59 (76) 95 11/15/18 21:00 Room Air 11/15/18 20:00 54 11/15/18 20:00 97.9 54 18 105/60 (75) 95 11/15/18 16:00 56 11/15/18 16:00 97.8 58 20 105/66 (79) 95 11/15/18 12:00 97.9 62 20 100/54 (69) 95 11/15/18 12:00 55 Intake and Output 11/15/18 11/16/18 19:00 07:00 Intake Total 320 ml Balance 320 ml Intake Oral 320 ml # Voids 3 3 Laboratory Tests Test 11/16/18 06:25 White Blood Count 5.7 K/UL (4.8-10.8) Red Blood Count 4.22 M/UL (4.20-5.40) Hemoglobin 13.3 G/DL (12.0-16.0) Hematocrit 41.1 % (37.0-47.0) Mean Corpuscular Volume 97 FL (80-99) Mean Corpuscular Hemoglobin 31.4 PG (27.0-31.0) H Mean Corpuscular Hemoglobin Concent 32.2 G/DL (32.0-36.0) Red Cell Distribution Width 11.8 % (11.6-14.8) Platelet Count 212 K/UL (150-450) Mean Platelet Volume 6.2 FL (6.5-10.1) L Neutrophils (%) (Auto) 48.5 % (45.0-75.0) Lymphocytes (%) (Auto) 38.9 % (20.0-45.0) Monocytes (%) (Auto) 7.5 % (1.0-10.0) Eosinophils (%) (Auto) 4.2 % (0.0-3.0) H Basophils (%) (Auto) 0.9 % (0.0-2.0) Sodium Level 142 MMOL/L (136-145) Potassium Level 3.8 MMOL/L (3.5-5.1) Chloride Level 108 MMOL/L (98-107) H Carbon Dioxide Level 27 MMOL/L (21-32) Anion Gap 7 mmol/L (5-15) Blood Urea Nitrogen 20 mg/dL (7-18) H Creatinine 1.1 MG/DL (0.55-1.30) Estimat Glomerular Filtration Rate mL/min (>60) Glucose Level 86 MG/DL (74-106) Calcium Level 8.5 MG/DL (8.5-10.1) Height (Feet): 5 Height (Inches): 5.00 Weight (Pounds): 154 General Appearance: WD/WN, no apparent distress, alert Cardiovascular: normal rate Respiratory/Chest: normal breath sounds, no respiratory distress Abdominal Exam: normal bowel sounds, non tender, soft Extremities: normal range of motion, non-tender Xuan Caro PAYMENT PROCESSOR Nov 16, 2018 10:32
--- NOTE | 2018-11-16 11:30 | NUR ---
NURSE NOTES: Pt. refused new IV. Will try in later time.
[2018-11-16 12:00] VITALS: BP 126/68
--- NOTE | 2018-11-16 13:45 | NUR ---
NURSE NOTES: R H 22g IV placed. Pt. complained of pain. Removed IV site intact.
[2018-11-16 16:00] VITALS: BP 145/79
[2018-11-16] MEDS ORDERED: Magnesium Citrate Liq Btl ORAL SCH (16:00)
[2018-11-16] MEDS ORDERED: Bisacodyl EC 5mg tab ORAL SCH (16:00)
[2018-11-16] MEDS ORDERED: Polyethylene Glycol 238gm bottle ORAL SCH (16:00)
--- NOTE | 2018-11-16 19:45 | NUR ---
HAND-OFF: Report given to MOISE Carrera. Pt. in stable condition.
--- NOTE | 2018-11-16 19:50 | NUR ---
NURSE NOTES: Received report from Saba Vela RN. Patient in bed AAO X4 with no complaints of acute pain or distress noted at this time. Kept clean, dry, and comfortable in bed. IV line intact and patent and placed on continuous cardiac monitoring per protocol. Able to ambulate with minimal to no assist to the bathroom, offered bedside commode but refused. Safety precaution in place; siderails X2 up, call ligth within reach, bed in lowest position, brakes and alarm on at all times. Needs and wants anticipated and attended. Will continue plan of care and monitor for any changes noted. Bowel prep initiated NPO at [place] EGD with possible BX and Colonoscopy tomorrow 11/17/18 per Arvin/Logan No active bleeding observed. Will continue to monitor.
[2018-11-16 20:00] VITALS: BP 147/75
[2018-11-16] MEDS ORDERED: Fleet's Enema 133ml RECTAL SCH (23:00)
--- NOTE | 2018-11-16 23:54 | NUR ---
NURSE NOTES: Bowel prep ongoing. BM X3 with noted loose consistency and clear in color.
[2018-11-17] VITALS (10 sets, daily range): BP systolic 116–151; BP diastolic 68–85
[2018-11-17] MEDS: D5 1/2NS 1,000 ML IV SCH (05:47)
[2018-11-17 06:35] LABS: EOSINOPHILS % (AUTO) 2.9 % (0.0-3.0); HEMATOCRIT 38.8 % (37.0-47.0); HEMOGLOBIN 12.7 G/DL (12.0-16.0); LYMPHOCYTES % (AUTO) 30.6 % (20.0-45.0); MEAN CORPUSCULAR VOLUME 98 FL (80-99); MONOCYTES % (AUTO) 7.5 % (1.0-10.0); PLATELET COUNT 219 K/UL (150-450); RED BLOOD COUNT 3.97 M/UL (4.20-5.40); RED CELL DISTRIBUTION WIDTH 11.3 % (11.6-14.8); WHITE BLOOD COUNT 5.8 K/UL (4.8-10.8)
[2018-11-17 06:42] LABS: ANION GAP 1 mmol/L (5-15); BLOOD UREA NITROGEN 19 mg/dL (7-18); CALCIUM 8.7 MG/DL (8.5-10.1); CARBON DIOXIDE 27 MMOL/L (21-32); CHLORIDE 111 MMOL/L (98-107); CREATININE 0.9 MG/DL (0.55-1.30); POTASSIUM 3.6 MMOL/L (3.5-5.1); SODIUM 139 MMOL/L (136-145)
--- NOTE | 2018-11-17 07:39 | NUR ---
HAND-OFF: Report given to Dimple Sanchez RN. Patient in bed with no S/S of distress. Endorsed plan of care.
--- NOTE | 2018-11-17 08:00 | NUR ---
NURSE NOTES: Patient is off the unit. Went to GI lab for EGD.
--- NOTE | 2018-11-17 08:07 | Nephrology Progress Note ---
Assessment/Plan Status: stable Assessment/Plan: A/P 1) GI Bleed- EGD/ +- Colonoscopy today - DC patient if cleared by GI with home health per patient request 2) HTN- stable 3) DVT prophylaxis- SCDs DC once cleared by GI today Subjective Date patient seen: Nov 17, 2018 Time patient seen: 08:06 Allergies: Coded Allergies: No Known Allergies (Unverified , 08/23/13) Subjective Patient gone to EGD Objective Last 24 Hour Vital Signs Date Time Temp Pulse Resp B/P (MAP) Pulse Ox O2 Delivery O2 Flow Rate FiO2 11/17/18 04:00 98.1 65 20 119/70 (86) 95 11/17/18 04:00 63 11/17/18 00:00 98.1 63 19 116/70 (85) 95 11/17/18 00:00 71 11/16/18 21:00 Room Air 11/16/18 20:00 68 11/16/18 20:00 98.7 67 18 147/75 (99) 96 11/16/18 16:00 98 11/16/18 16:00 97.7 69 18 145/79 (101) 98 11/16/18 12:00 52 11/16/18 12:00 98.6 56 18 126/68 (87) 96 11/16/18 09:18 58 143/77 11/16/18 09:00 58 143/77 11/16/18 09:00 Room Air Intake and Output 11/16/18 11/17/18 19:00 07:00 Intake Total 950 ml Balance 950 ml Intake Oral 950 ml # Voids 3 2 # Bowel Movements 3 Laboratory Tests 11/17/18 05:00: White Blood Count 5.8, Red Blood Count 3.97L, Hemoglobin 12.7, Hematocrit 38.8, Mean Corpuscular Volume 98, Mean Corpuscular Hemoglobin 32.1H, Mean Corpuscular Hemoglobin Concent 32.8, Red Cell Distribution Width 11.3L, Platelet Count 219, Mean Platelet Volume 6.3L, Neutrophils (%) (Auto) 58.0, Lymphocytes (%) (Auto) 30.6, Monocytes (%) (Auto) 7.5, Eosinophils (%) (Auto) 2.9, Basophils (%) (Auto ) 1.0, Prothrombin Time 10.7, Prothromb Time International Ratio 1.0, Activated Partial Thromboplast Time 22L, Sodium Level 139, Potassium Level 3.6, Chloride Level 111H, Carbon Dioxide Level 27, Anion Gap 1L, Blood Urea Nitrogen 19H, Creatinine 0.9, Estimat Glomerular Filtration Rate , Glucose Level 112H, Calcium Level 8.7 Height (Feet): 5 Height (Inches): 5.00 Weight (Pounds): 154 Mac Landaverde MD Nov 17, 2018 08:07
[2018-11-17] MEDS ORDERED: NS 500ML IVPB ONE (08:10)
--- NOTE | 2018-11-17 08:16 | Discharge Instructions ---
Discharge Instructions Discharge Instructions Services at Discharge: home health services Diet: 2 GM sodium (low sodium) Resume Normal Activity?: Yes Activity: resume normal activities Follow Up Orders F/U PCP 1 week Patient requested service at [facility] Reminder Report to your physician any weight gain of 5 pounds or more in one week. Mac Landaverde MD Nov 17, 2018 08:16
--- NOTE | 2018-11-17 08:22 | Pre-Procedure Note/Attestation ---
Pre-Procedure Note/Attestation Complete Prior to Procedure Planned Procedure: not applicable Procedure Narrative: egd Indications for Procedure Pre-Operative Diagnosis: gib Attestation I attest that I discussed the nature of the procedure; its benefits; risks and complications; and alternatives (and the risks and benefits of such alternatives ), prior to the procedure, with the patient (or the patient's legal dental detail representative). I attest that, if there was a reasonable possibility of needing a blood transfusion, the patient (or the patient's legal dental detail representative) was given the [facility] standardized written summary, pursuant to the Aba Nickolas Blood Safety Act ([place] Health and Safety Code # 1645, as amended). I attest that I re-evaluated the patient just prior to the surgery and that there has been no change in the patient's H&P, except as documented below: Kevin Sheridan MD Nov 17, 2018 08:22
--- NOTE | 2018-11-17 08:23 | General Progress Note ---
Assessment/Plan Problem List: (1) Coffee ground emesis ICD Codes: K92.0 - Hematemesis SNOMED: 40095236 (2) GI bleed ICD Codes: K92.2 - Gastrointestinal hemorrhage, unspecified SNOMED: 30593986 (3) Abdominal pain (4) Diarrhea ICD Codes: R19.7 - Diarrhea, unspecified SNOMED: 66125570 Status: stable Assessment/Plan: plan EGD for today Subjective ROS Limited/Unobtainable: Yes Allergies: Coded Allergies: No Known Allergies (Unverified , 08/23/13) Objective Last 24 Hour Vital Signs Date Time Temp Pulse Resp B/P (MAP) Pulse Ox O2 Delivery O2 Flow Rate FiO2 11/17/18 04:00 98.1 65 20 119/70 (86) 95 11/17/18 04:00 63 11/17/18 00:00 98.1 63 19 116/70 (85) 95 11/17/18 00:00 71 11/16/18 21:00 Room Air 11/16/18 20:00 68 11/16/18 20:00 98.7 67 18 147/75 (99) 96 11/16/18 16:00 98 11/16/18 16:00 97.7 69 18 145/79 (101) 98 11/16/18 12:00 52 11/16/18 12:00 98.6 56 18 126/68 (87) 96 11/16/18 09:18 58 143/77 11/16/18 09:00 58 143/77 11/16/18 09:00 Room Air Intake and Output 11/16/18 11/17/18 19:00 07:00 Intake Total 950 ml Balance 950 ml Intake Oral 950 ml # Voids 3 2 # Bowel Movements 3 Laboratory Tests 11/17/18 05:00: White Blood Count 5.8, Red Blood Count 3.97L, Hemoglobin 12.7, Hematocrit 38.8, Mean Corpuscular Volume 98, Mean Corpuscular Hemoglobin 32.1H, Mean Corpuscular Hemoglobin Concent 32.8, Red Cell Distribution Width 11.3L, Platelet Count 219, Mean Platelet Volume 6.3L, Neutrophils (%) (Auto) 58.0, Lymphocytes (%) (Auto) 30.6, Monocytes (%) (Auto) 7.5, Eosinophils (%) (Auto) 2.9, Basophils (%) (Auto ) 1.0, Prothrombin Time 10.7, Prothromb Time International Ratio 1.0, Activated Partial Thromboplast Time 22L, Sodium Level 139, Potassium Level 3.6, Chloride Level 111H, Carbon Dioxide Level 27, Anion Gap 1L, Blood Urea Nitrogen 19H, Creatinine 0.9, Estimat Glomerular Filtration Rate , Glucose Level 112H, Calcium Level 8.7 Height (Feet): 5 Height (Inches): 5.00 Weight (Pounds): 154 General Appearance: alert EENT: normal ENT inspection Neck: supple Cardiovascular: normal rate Respiratory/Chest: decreased breath sounds Abdomen: normal bowel sounds, non tender, soft Extremities: non-tender Kevin Sheridan MD Nov 17, 2018 08:23
--- NOTE | 2018-11-17 08:32 | Endoscopy Procedure Note ---
Endoscopy Procedure Note General Indication for Procedure: gib Procedures Performed: EGD Operative Findings/Diagnosis: gastritis Specimen: yes Pt Tolerated Procedure Well: Yes Estimated Blood Loss: none Anesthesia Anesthesiologist: maximiliano Anesthesia: MAC Inserted Devices Implant(s) used?: No GI Core Measures 50 yrs or older w/o bx or poly: Not Applicable 10yrs. F/U recommended: Not Applicable Kevin Sheridan MD Nov 17, 2018 08:32
--- NOTE | 2018-11-17 09:00 | Procedure Note ---
DATE OF PROCEDURE: 11/17/2018 SURGEON: Kevin Sheridan M.D. PROCEDURE: Upper endoscopy with biopsy. ANESTHESIA: Per Dr. Esqueda. INSTRUMENT: Olympus adult flexible upper endoscope. INDICATION: For GI bleeding. REASON FOR PROCEDURE: The procedure, risks, benefits, and possible consequences, including hemorrhage, aspiration, perforation and infection, and alternative treatments, were explained to the patient/legal guardian by Dr. Kevin Sheridan and the patient/legal guardian understood and accepted these risks. PROCEDURE IN DETAIL: After informed consent was obtained and the patient was adequately sedated, Olympus upper endoscope was advanced from the mouth into the second portion of the duodenum and retroflexion was performed in the stomach. The patient has evidence of diffuse gastritis. Random biopsy from antrum was obtained to rule out H. pylori infection. Otherwise, there is no evidence of any obvious pathology. The patient has some inlet patches in the upper esophagus. No evidence of active GI bleeding at this time. The patient tolerated the procedure well without any complication. SUMMARY OF FINDINGS: 1. Inlet patch. 2. Gastritis, status post biopsy. RECOMMENDATION: 1. Follow up biopsy results and treat accordingly. 2. The patient was scheduled for repeat colonoscopy today, but she did not take the prep. So, the patient will need the outpatient followup for colonoscopy. I want to thank, Dr. Landaverde, for this kind referral. Kevin Sheridan M.D. DR: LEONEL JOB#: [id number] CC: Mac Landaverde M.D.
[2018-11-17] MEDS: Atenolol 25mg tab ORAL SCH (09:29)
--- NOTE | 2018-11-17 10:15 | NUR ---
PT EVALUATION NOTE Patient seen for PT evaluation, see complete evaluation for details. Patient presents with generalized weakness which affects patient's ability to perform functional mobility activities. Patient will benefit from skilled inpatient PT intervention to address strength, endurance, balance, safety and functional mobility. Recommend discharge home with home PT follow up once medically cleared by MD. Recommend FWW for home use for improved safety with ambulation. Addendum: 11/17/18 at 1303 by WOODY GOMEZ PT Amended: Links added.
--- NOTE | 2018-11-17 11:43 | Pulmonology Progress Note ---
Assessment/Plan Assessment/Plan ASSESSMENT AND PLAN: 1. Gastrointestinal bleed 2. Hypertension. 3. Volume depletion. 4. Coronary artery disease. 5. DVT prophylaxis with SCDs. 6. Chest pain. Appears nonpulmonary and noncardiac in origin. Subjective Interval Events: Feeling better Constitutional: Reports: no symptoms HEENT: Repors: no symptoms Respiratory: Reports: no symptoms Cardiovascular: Reports: no symptoms Gastrointestinal/Abdominal: Reports: no symptoms Allergies: Coded Allergies: No Known Allergies (Unverified , 08/23/13) Objective Last 24 Hour Vital Signs Date Time Temp Pulse Resp B/P (MAP) Pulse Ox O2 Delivery O2 Flow Rate FiO2 11/17/18 09:30 Room Air 11/17/18 09:29 63 143/75 11/17/18 09:29 63 143/75 11/17/18 09:26 143/75 (97) 11/17/18 09:10 97.0 63 18 151/76 97 Room Air 11/17/18 09:00 62 17 146/77 96 Room Air 11/17/18 08:50 65 18 149/74 99 Nasal Cannula 3 11/17/18 08:45 64 19 143/73 99 Nasal Cannula 3 11/17/18 08:40 97.3 65 16 126/85 99 Nasal Cannula 3 11/17/18 07:50 98.4 67 16 140/74 (96) 97 11/17/18 07:26 70 11/17/18 04:00 98.1 65 20 119/70 (86) 95 11/17/18 04:00 63 11/17/18 00:00 98.1 63 19 116/70 (85) 95 11/17/18 00:00 71 11/16/18 21:00 Room Air 11/16/18 20:00 68 11/16/18 20:00 98.7 67 18 147/75 (99) 96 11/16/18 16:00 98 11/16/18 16:00 97.7 69 18 145/79 (101) 98 11/16/18 12:00 52 11/16/18 12:00 98.6 56 18 126/68 (87) 96 Intake and Output 11/16/18 11/17/18 19:00 07:00 Intake Total 950 ml 75 ml Balance 950 ml 75 ml Intake Oral 950 ml IV Total 75 ml # Voids 3 2 # Bowel Movements 3 General Appearance: no acute distress HEENT: normocephalic Respiratory/Chest: chest wall non-tender, lungs clear Cardiovascular: normal peripheral pulses, normal rate Abdomen: normal bowel sounds Laboratory Tests 11/17/18 05:00: White Blood Count 5.8, Red Blood Count 3.97L, Hemoglobin 12.7, Hematocrit 38.8, Mean Corpuscular Volume 98, Mean Corpuscular Hemoglobin 32.1H, Mean Corpuscular Hemoglobin Concent 32.8, Red Cell Distribution Width 11.3L, Platelet Count 219, Mean Platelet Volume 6.3L, Neutrophils (%) (Auto) 58.0, Lymphocytes (%) (Auto) 30.6, Monocytes (%) (Auto) 7.5, Eosinophils (%) (Auto) 2.9, Basophils (%) (Auto ) 1.0, Prothrombin Time 10.7, Prothromb Time International Ratio 1.0, Activated Partial Thromboplast Time 22L, Sodium Level 139, Potassium Level 3.6, Chloride Level 111H, Carbon Dioxide Level 27, Anion Gap 1L, Blood Urea Nitrogen 19H, Creatinine 0.9, Estimat Glomerular Filtration Rate , Glucose Level 112H, Calcium Level 8.7 Current Medications Medications (Trade) Dose Ordered Sig/Jose Route PRN Reason Start Time Stop Time Status Last Admin Dose Admin Acetaminophen (Tylenol) 650 mg Q4H PRN ORAL Mild Pain (Pain Scale 1-3) 11/14/18 23:15 12/14/18 23:14 Amlodipine Besylate (Norvasc) 10 mg DAILY ORAL 11/15/18 09:00 12/15/18 08:59 11/17/18 09:29 Atenolol (Tenormin) 25 mg DAILY ORAL 11/15/18 09:00 12/15/18 08:59 11/17/18 09:29 Dextrose (Dextrose 50%) 25 ml Q30M PRN IV Hypoglycemia 11/14/18 23:15 12/14/18 23:14 Dextrose (Dextrose 50%) 50 ml Q30M PRN IV Hypoglycemia 11/14/18 23:15 12/14/18 23:14 Iopamidol (Isovue-300 100ml) 100 ml NOW PRN INJ Radiology Procedure 11/14/18 23:00 11/17/18 22:59 Ondansetron HCl (Zofran) 4 mg Q6H PRN IVP Nausea & Vomiting 11/14/18 23:15 12/14/18 23:14 Pantoprazole (Protonix) 40 mg DAILY ORAL 11/15/18 09:00 12/15/18 08:59 11/17/18 09:28 Nam Che MD Nov 17, 2018 11:43
--- NOTE | 2018-11-17 13:24 | NUR ---
DISCHARGE PLAN FAXED CLINCALS TO [facility] T: [phone] F: [phone]
--- NOTE | 2018-11-17 14:00 | NUR ---
NURSE NOTES: [facility] Accompanied by patient's friend. Patient in stable condition. Belonging list reviewed and given to patient.
--- NOTE | 2018-11-18 10:55 | Discharge Summary ---
Discharge Summary Discharge Summary _ DATE OF ADMISSION: 11/14/2018 DATE OF DISCHARGE: 11/17/2018 DISCHARGED BY: Dr. Mac Landaverde CONSULTANTS: Dr. Kevin Che BRIEF HOSPITAL COURSE: Patient is an 83-year-old female, who was brought in by EMS veins of bright red blood through rectum starting afternoon the day prior. Patient had been doing well with physical therapy as an outpatient, she presented from home after she noticed dark tarry stools, which turned bright red. She also had episodes of emesis which she felt was dark-tinged in nature. She denied any chest pain, nausea, vomiting or diarrhea. She denied pain with defecation. She has medical history significant for hypertension and coronary artery disease. On evaluation at the ED, there was 166/80, pulse rate 78, 98% saturation on room air. Blood work did not show any leukocytosis. Hemoglobin 14, hematocrit 41. Electrolytes were normal. Troponin was negative. EKG shows normal sinus rhythm with rate of [address] or T wave changes. She was given IV Zofran as well as IV Protonix. Due to patient's advanced age and use of anticoagulant, she was then admitted for evaluation of GI bleed. She was placed on n.p.o. He was given IV hydration. GI was consulted. Plavix was placed on hold. Patient needs to be off Plavix for minimum of 48 hours prior to any GI procedures. She was given PPI. Diet was advanced. She also complained of chest pain, appeared nonpulmonary and noncardiac in origin. On 11/17/2018, she underwent upper endoscopy with biopsy. Endoscopy showed evidence of diffuse gastritis. Otherwise, no evidence of any obvious pathology. Patient has inlet patches in the upper esophagus. No evidence of active GI bleed. Patient was scheduled for a colonoscopy, however, patient did not take the prep. She was advised to have colonoscopy done as outpatient. Hemoglobin levels were stable. She was tolerating diet well. She was given PT. She was eventually discharged home. FINAL DIAGNOSES: GI bleed Hypertension Volume depletion Coronary artery disease Non pulmonary noncardiac chest pain Status post upper endoscopy with biopsy with evidence of diffuse gastritis DISPOSITION: Patient was discharged home with home health. DISCHARGE MEDICATIONS: Refer to Discharge Medication List. Plavix was resumed. DISCHARGE INSTRUCTIONS: Follow-up in a week. I have been assigned to complete a discharge summary on this account, I was not involved with the patient's management.--JUAN LUIS Becker Jacqueline Robles NP Nov 18, 2018 10:55
== END 2018-11-17 14:23 | disposition home or self-care (01) | DRG 379 ==
LOC: EDBD 21:00 → EMR 21:10 → 2E 22:39 → EDBEDREQ 23:12 → EDBEDREQSVC 23:12 → EDBEDREQ 11-15 00:24
PROC: 0DB78ZX Excision of Stomach, Pylorus, Via Natural or Artificial Opening Endoscopic, Diagnostic (ICD-10-PCS; principal; 2018-11-17 08:25)
DX: K92.2 Gastrointestinal hemorrhage, unspecified (principal); I10 Essential (primary) hypertension; I25.10 Atherosclerotic heart disease of native coronary artery without angina pectoris; R07.89 Other chest pain; Z79.02 Long term (current) use of antithrombotics/antiplatelets; K29.70 Gastritis, unspecified, without bleeding
CPT/HCPCS: 36415; 74177; 80048; 80053; 82962; 83690; 84443; 84484; 85007; 85025; 85610; 85730; 86850; 86900; 86901; 87081; 93005; 94003; 94150; 96374; 96375; 99285; J2405

== ENCOUNTER 2020-02-06 04:22 | Emergency (ER) | payer MEDICAID, MEDICARE ==
[~2020-02-06] VITALS: Ht 170.2 cm; Wt 65.8 kg
[~2020-02-06 04:22] MED LIST changes: +AMLODIPINE BESY10 MG ORAL; +BYSTOLIC10 MG ORAL; +PLAVIX75 MG ORAL
--- NOTE | 2020-02-06 04:25 | NUR ---
ED Nurse Note: Pt brought in by ambulance 35 c/o dizziness around 1900. Pt stated unk cause, no signs of head trauma. reports nausea; denies vomitting or diarrhea. changed into gown; attached to monitor. patient ao4 with no acute distress. vitals stable all safety measures met.
[2020-02-06 04:30] VITALS: BP 169/86
--- NOTE | 2020-02-06 04:30 | NUR ---
ED Nurse Note: iv access established. blood collected; sent down to lab. unable to collect urine at this time; pt states will provide when able; refused straight cath.
--- NOTE | 2020-02-06 04:35 | Emergency Room Report ---
History of Present Illness General Chief Complaint: Dizziness Source: Patient, Medical Record, EMS Present Illness [facility] This an 84-year-old female with a history of CVA and high blood pressure. She presents with chief plaint of dizziness. She said that tonight she felt dizzy. She said that felt weak entire also with room spinning. Roosevelt nauseous. No focal deficit. No fever or chills. Nothing made it better. Opening her eyes and try to sit up made it worse. No chest pain. No shortness of breath. 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; Review of Systems Constitutional: Reports: weakness Eye: Denies: eye pain, blurred vision ENT: Denies: ear pain, nose congestion, throat swelling Respiratory: Denies: cough, shortness of breath Cardiovascular: Denies: chest pain, palpitations Gastrointestinal: Denies: abdominal pain, diarrhea, nausea, vomiting Musculoskeletal: Denies: back pain, joint pain Skin: Denies: rash Neurological: Reports: dizziness; Denies: headache, numbness Endocrine: Denies: increased thirst, increased urine Hematologic/Lymphatic: Denies: easy bruising All Other Systems: negative except mentioned in HPI Physical Exam Vital Signs Date Time Temp Pulse Resp B/P (MAP) Pulse Ox O2 Delivery O2 Flow Rate FiO2 02/06/20 04:24 97.9 88 16 169/86 (113) 98 Room Air Vitals with high blood pressure Sp02 EP Interpretation: reviewed, normal General Appearance: well appearing, no apparent distress, alert Head: normocephalic, atraumatic Eyes: bilateral eye PERRL, bilateral eye EOMI ENT: hearing grossly normal, normal pharynx Neck: full range of motion, supple, no meningismus Respiratory: chest non-tender, lungs clear, normal breath sounds Cardiovascular #1: regular rate, rhythm, no murmur Gastrointestinal: normal bowel sounds, non tender, no mass, no organomegaly, no bruit, non-distended Musculoskeletal: back normal, normal range of motion, gait/station normal Psychiatric: mood/affect normal Medical Decision Making Diagnostic Impression: Primary Impression: Dizziness of unknown cause Additional Impression: Weakness ER Course Presents with dizziness and weakness. No evidence of TIA or CVA. CT head is negative. She still very symptomatic. Will admit for monitoring. No anemia. Because the patient insurance, she is approved for admission under service of Dr. Mart. EKG Diagnostic Results Rate: normal Rhythm: NSR ST Segments: no acute changes Rhythm Strip Diag. Results EP Interpretation: yes Rate: 81 Rhythm: NSR, no PVC's, no ectopy Chest X-Ray Diagnostic Results Chest X-Ray Diagnostic Results : Chest X-Ray Ordered: Yes # of Views/Limited/Complete: 1 View Indication: Chest Pain EP Interpretation: Yes Interpretation: no consolidation, no effusion, no pneumothorax, no acute cardiopulmonary disease Impression: No acute disease Electronically Signed by: Artie Crawley mD CT/MRI/US Diagnostic Results CT/MRI/US Diagnostic Results : Imaging Test Ordered: CT head Impression Read by radiologist. Negative. Last Vital Signs Date Time Temp Pulse Resp B/P (MAP) Pulse Ox O2 Delivery O2 Flow Rate FiO2 02/06/20 04:24 97.9 88 16 169/86 (113) 98 Room Air Status: improved Disposition: ADMITTED INPATIENT Condition: Serious Artie Crawley MD Feb 06, 2020 04:35
[2020-02-06 04:53] LABS: BASOPHILS % (AUTO) 1.5 % (0.0-2.0); EOSINOPHILS % (AUTO) 0.6 % (0.0-3.0); HEMATOCRIT 39.8 % (37.0-47.0); HEMOGLOBIN 13.4 G/DL (12.0-16.0); LYMPHOCYTES % (AUTO) 21.5 % (20.0-45.0); MEAN CORPUSCULAR VOLUME 92 FL (80-99); MONOCYTES % (AUTO) 3.3 % (1.0-10.0); PLATELET COUNT 259 K/UL (150-450); RED BLOOD COUNT 4.32 M/UL (4.20-5.40); RED CELL DISTRIBUTION WIDTH 11.1 % (11.6-14.8); WHITE BLOOD COUNT 6.6 K/UL (4.8-10.8)
--- NOTE | 2020-02-06 05:00 | NUR ---
ED Nurse Note: urine collected; sent down to lab.
[2020-02-06 05:10] LABS: ALBUMIN 3.8 G/DL (3.4-5.0); ALBUMIN/GLOBULIN RATIO 1.5 (1.0-2.7); BILIRUBIN,TOTAL 0.4 MG/DL (0.2-1.0); CALCIUM 8.9 MG/DL (8.5-10.1); POTASSIUM 3.3 MMOL/L (3.5-5.1)
[2020-02-06 05:18] LABS: APPEARANCE,URINE CLEAR; BILIRUBIN, URINE NEGATIVE (NEGATIVE); COLOR,URINE PALE YELLOW; GLUCOSE, URINE (UA) 2+ (NEGATIVE); KETONES,URINE NEGATIVE (NEGATIVE); LEUKOCYTE ESTERASE ,URINE NEGATIVE (NEGATIVE); NITRITE,URINE NEGATIVE (NEGATIVE); PH,URINE 7 (4.5-8.0); PROTEIN,URINE NEGATIVE (NEGATIVE); UROBILINOGEN,URINE NORMAL MG/DL (0.0-1.0)
--- NOTE | 2020-02-06 05:18 | Diagnostic Imaging Report ---
EXAM: CT Head Without Intravenous Contrast CLINICAL HISTORY: DIZZY TECHNIQUE: Axial computed tomography images of the head/brain without intravenous contrast. CTDI is 53.40 mGy and DLP is 1045.50 mGy-cm. One or more of the following dose reduction techniques were used: automated exposure control, adjustment of the mA and/or kV according to patient size, use of iterative reconstruction technique. COMPARISON: No relevant prior studies available. FINDINGS: No acute intracranial hemorrhage. No midline shift or mass effect. The territorial byrd-white matter differentiation is maintained throughout. Age-related cerebral volume loss. Periventricular and subcortical white matter hypoattenuation, consistent with chronic microangiopathy. Bilateral cataract surgery. The calvarium is intact. The visualized paranasal sinuses and mastoid air cells are grossly clear. IMPRESSION: No acute intracranial hemorrhage, midline shift, or mass effect.
--- NOTE | 2020-02-06 05:53 | NUR ---
ED Nurse Note: assisted patient on bedpan. provided patient with disposable brief per patient request.
[2020-02-06 05:56] VITALS: BP 162/83
--- NOTE | 2020-02-06 06:00 | NUR ---
ED Nurse Note: discussed plan of care with patient; aware of pending admission and possible transfer.
--- NOTE | 2020-02-06 06:30 | NUR ---
ED Nurse Note: report given to kaye of [facility]. patient to be admitted to [facility] under the care of rupa arias. transportation eta 0730 with [facility].
--- NOTE | 2020-02-06 07:20 | NUR ---
ED Nurse Note: Patient resting on bed with no distress. Breakfast placed at the bed side table. Waiting for transport.
[2020-02-06 08:00] VITALS: BP 123/70
--- NOTE | 2020-02-06 08:38 | NUR ---
ED Nurse Note: Report given to Mily Wright RN. All belongings sent with patient and stable fro transport.
[2020-02-06 08:40] VITALS: BP 118/76
--- NOTE | 2020-02-06 13:43 | Cardiology Report ---
APPROVED REPORT EKG Measurement Heart [id number] <Conclusion> Sinus tachycardia with premature atrial complexes Left axis deviation Nonspecific ST abnormality Abnormal ECG
--- NOTE | 2020-02-06 15:14 | Diagnostic Imaging Report ---
Indication: Reason For Exam: SOB Technique: Single AP view of the chest. Comparison: Chest radiograph dated 02/22/2017 Findings: The cardiomediastinal silhouette is unchanged in appearance, with persistent cardiomegaly. Streaky bibasilar airspace opacities noted. There is mild pulmonary vascular congestion. Biapical scarring, slightly decreased from prior examination. No acute osseous abnormality. 3 to 4 mm nodule in the right apex is seen on prior examination and likely represents calcified granuloma. Right infrahilar nodule is also seen on prior examination, likely representing calcified granuloma. IMPRESSION: Pulmonary vascular congestion with streaky left basilar airspace opacity which could represent atelectasis but pneumonia should be excluded clinically.
== END 2020-02-06 08:55 | disposition short-term general hospital (02) ==
LOC: EDBD 04:22 → EDUNIT# 04:22 → EMR 04:52 → EDBEDREQ 05:44 → EDBEDREQSVC 05:44 → EMR 08:55
DX: R42 Dizziness and giddiness (principal); R53.1 Weakness; I10 Essential (primary) hypertension; H91.91 Unspecified hearing loss, right ear
CPT/HCPCS: 36415; 70450; 71045; 80053; 81003; 84484; 85025; 93005; 96361; 96374; 99284; J2405; J7030